=== PATIENT | female | born 1990 | race Caucasian/White ===

== ENCOUNTER 2018-09-24 11:35 | Emergency (ER) | payer SELFPAY ==
--- NOTE | 2018-09-24 12:26 | ER ---
Nurse's Notes [facility] Name: Marni Vang Age: 27 yrs Sex: Female : 1990 Arrival Date: 09/24/2018 Time: 11:41 Bed 17 Private MD: Diagnosis: Facial Cellulitis;Dental caries Presentation: 09/24 12:18 Presenting complaint: Patient states: left cheek/gum swelling x 4 days. Transition of jl7 care: patient was not received from another setting of care. Onset of symptoms was September 20, 2018. Risk Assessment: Do you want to hurt yourself or someone else? Patient reports no desire to harm self or others. Initial Sepsis Screen: Does the patient meet any 2 criteria? No. Patient's initial sepsis screen is negative. Does the patient have a suspected source of infection? No. Patient's initial sepsis screen is negative. Care prior to arrival: None. 12:18 Method Of Arrival: Ambulatory jl7 12:18 Acuity: VERONICA 4 jl7 Triage Assessment: 12:20 General: Appears in no apparent distress. uncomfortable, Behavior is calm, cooperative, jl7 appropriate for age. Pain: Complains of pain in left cheek Pain currently is 10 out of 10 on a pain scale. EENT: Throat is clear. Neuro: Level of Consciousness is awake, alert, obeys commands. Cardiovascular: Patient's skin is warm and dry. Respiratory: Airway is patent Respiratory effort is even, unlabored, Respiratory pattern is regular, symmetrical. Derm: Skin is pink, warm \T\ dry. 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 - Social history:: Smoking status: Patient uses tobacco products, smokes one-half pack cigarettes per day. - Ebola Screening: : No symptoms or risks identified at this time. - Family history:: not pertinent. - Hospitalizations: : No recent hospitalization is reported. Screenin:22 Abuse screen: Denies threats or abuse. Denies injuries from another. Nutritional jl7 screening: No deficits noted. Tuberculosis screening: No symptoms or risk factors identified. Fall Risk None identified. Assessment: 12:20 General: Appears in no apparent distress. uncomfortable, Behavior is calm, cooperative, hj appropriate for age. Pain: Complains of pain in face and left cheek. Neuro: Level of Consciousness is awake, alert, obeys commands, Oriented to person, place, time, situation, Appropriate for age. Cardiovascular: Capillary refill < 3 seconds Patient's skin is warm and dry. Respiratory: Airway is patent Respiratory effort is even, unlabored, Respiratory pattern is regular, symmetrical. GI: No signs and/or symptoms were reported involving the gastrointestinal system. : No signs and/or symptoms were reported regarding the genitourinary system. EENT: Derm: No signs and/or symptoms reported regarding the dermatologic system. Musculoskeletal: No signs and/or symptoms reported regarding the musculoskeletal system. Vital Signs: 12:20 BP 129 / 84; Pulse 107; Resp 16 S; Pulse Ox 100% on R/A; Weight 72.57 kg (R); Height 5 jl7 ft. 2 in. (157.48 cm) (R); Pain 10/10; 12:25 Temp 99.1(O); aa5 12:20 Body Mass Index 29.26 (72.57 kg, 157.48 cm) jl7 ED Course: 11:41 Patient arrived in ED. mr 12:12 Shmuel Apple MD is Attending Physician. rn 12:17 Art García RN is Primary Nurse. hj 12:19 Triage completed. jl7 12:20 Arm band placed on right wrist. jl7 12:22 Patient has correct armband on for positive identification. Bed in low position. Call [facility] light in reach. Side rails up X 1. 12:43 No provider procedures requiring assistance completed. Patient did not have IV access hj during this emergency room visit. Administered Medications: No medications were administered Outcome: 12:26 Discharge ordered by . rn 12:44 Discharged to home ambulatory, with family. hj 12:44 Condition: stable 12:44 Discharge instructions given to patient, family, Instructed on discharge instructions, follow up and referral plans. medication usage, Demonstrated understanding of instructions, follow-up care, medications, Prescriptions given X 2. 12:44 Patient left the ED. hj Signatures: Amy Kwok mr Shmuel Apple MD MD rn Israel, Estefani, RN RN aa5 Art García, RN RN Valorie Webb RN RN jl7
--- NOTE | 2018-09-24 12:26 | EDPHYS ---
Physician Documentation [facility] Name: Marni Vang Age: 27 yrs Sex: Female : 1990 Arrival Date: 09/24/2018 Time: 11:41 Bed 17 Private MD: ED Physician Shmuel Apple HPI: 09/24 12:20 This 27 yrs old Female presents to ER via Ambulatory with complaints of rn Facial Swelling. 12:20 The patient presents with pain, swelling. Onset: The symptoms/episode began/occurred 3 rn day(s) ago. Duration: The symptoms are intermittent. Severity of symptoms: At their worst the symptoms were mild, in the emergency department the symptoms are unchanged. The patient has experienced similar episodes in the past. Reports left facial swelling and pain, reports has happened before with bad teeth. NO fever, no trouble swallowing.. 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 - Social history:: Smoking status: Patient uses tobacco products, smokes one-half pack cigarettes per day. - Ebola Screening: : No symptoms or risks identified at this time. - Family history:: not pertinent. - Hospitalizations: : No recent hospitalization is reported. ROS: 12:20 Constitutional: Negative for fever, chills, and weight loss, Eyes: Negative for injury, rn pain, redness, and discharge, ENT: + poor dentition and facial swelling Neck: Negative for injury, pain, and swelling, Skin: Negative for injury, rash, and discoloration, Neuro: Negative for headache, weakness, numbness, tingling, and seizure. Exam: 12:20 Constitutional: This is a well developed, well nourished patient who is awake, alert, rn and in no acute distress. Head/Face: Atraumatic. + left facial swelling at buccal region without fluctuance Eyes: Pupils equal round and reactive to light, extra-ocular motions intact. Lids and lashes normal. Conjunctiva and sclera are non-icteric and not injected. Cornea within normal limits. ENT: Poor dentition. Mucous membranes moist. Neuro: Awake and alert, GCS 15, oriented to person, place, time, and situation. Cranial nerves II-XII grossly intact. Motor strength 5/5 in all extremities. Sensory grossly intact. Cerebellar exam normal. Normal gait. Vital Signs: 12:20 BP 129 / 84; Pulse 107; Resp 16 S; Pulse Ox 100% on R/A; Weight 72.57 kg (R); Height 5 jl7 ft. 2 in. (157.48 cm) (R); Pain 10/10; 12:25 Temp 99.1(O); aa5 12:20 Body Mass Index 29.26 (72.57 kg, 157.48 cm) jl7 MDM: 12:12 Patient medically screened. rn 12:20 Differential diagnosis: dental caries, gingivitis, facial cellulitis. Data reviewed: rn vital signs, nurses notes, and as a result, I will discharge patient. Counseling: I had a detailed discussion with the patient and/or guardian regarding: the historical points, exam findings, and any diagnostic results supporting the discharge/admit diagnosis, the need for outpatient follow up, to return to the emergency department if symptoms worsen or persist or if there are any questions or concerns that arise at home. Special discussion: I discussed with the patient/guardian in detail that at this point there is no indication for admission to the hospital. It is understood, however, that if the symptoms persist or worsen the patient needs to return immediately for re-evaluation. Based on the history and exam findings, there is no indication for further emergent testing or inpatient evaluation. I discussed with the patient/guardian the need to see a dentist for further evaluation of the symptoms. ED course: Pt without abscess, + facial swelling and cellulitis, most likely from odontogenic source, will treat with abx and have f/u with dentist. Had dental appt, was in clinic, but didn't want to pay the $50 so came here. . Administered Medications: No medications were administered Disposition: 09/24/18 12:26 Discharged to Home. Impression: Facial Cellulitis, Dental caries. - Condition is Stable. - Discharge Instructions: Cellulitis, Adult, Dental Pain. - Prescriptions for Clindamycin HCl 300 mg Oral Capsule - take 1 capsule by ORAL route every 6 hours for 10 days; 40 capsule. Bactrim DS 800- 160 mg Oral Tablet - take 1 tablet by ORAL route every 12 hours for 10 days; 20 tablet. - Medication Reconciliation Form, Thank You Letter, Antibiotic Education, Prescription Opioid Use form. - Follow up: Private Physician; When: As needed; Reason: Recheck today's complaints, Re-evaluation by your physician. - Problem is new. - Symptoms are unchanged. Signatures: Shmuel Apple MD MD rn Joaquin, Henry, RN RN hj Leal, Jahala, RN RN jl7 Corrections: (The following items were deleted from the chart) 12:44 12:26 09/24/2018 12:26 Discharged to Home. Impression: Facial Cellulitis; Dental hj caries. Condition is Stable. Forms are Medication Reconciliation Form, Thank You Letter, Antibiotic Education, Prescription Opioid Use. Follow up: Private Physician; When: As needed; Reason: Recheck today's complaints, Re-evaluation by your physician. Problem is new. Symptoms are unchanged. rn
[2018-09-24 13:07] VITALS: BP 129/84; O2SAT 100
[2018-09-24 13:08] VITALS: TEMP 99.1
== END 2018-09-24 12:44 | disposition home or self-care (01) ==
LOC: ER 11:35
DX: L03.211 Cellulitis of face (principal); F17.210 Nicotine dependence, cigarettes, uncomplicated; Z88.5 Allergy status to narcotic agent
CPT/HCPCS: 99282

== ENCOUNTER 2021-11-22 14:02 | Emergency (ER) | payer SELFPAY ==
--- OUTSIDE RECORDS SUMMARY | 2021-11-22 14:05 | XMS REPORT | Continuity of Care Document ---
:1990 Author Organization [facility] t Address [address] [place] [address] Care Team Providers Name Role Phone Unavailable Unavailable Unavailable Problems This patient has no known problems. Allergies, Adverse Reactions, Alerts Allergy Allergy Status Severity Reaction(s) Onset Inactive Treating Comm ents Source Name Type Date Date Clinician PROPOXYP DRUG Active Rash [facility] HENE 09-28 [facility] 00:00: [address] [facility] Medications This patient has no known medications. Procedures This patient has no known procedures. Encounters Start End Encounter Admission Attending Care Care Encounter Source Date/Time Date/Time Type Type Clinicians Facility Department ID 2021-03-19 2021-03-19 Emergency X [facility] ERT [id number] [facility] 21:13:00 21:13:00 [facility] Results This patient has no known results.
[2021-11-22] MEDS ORDERED: dexAMETHasone 10 MG/ML VIAL ONE (14:56)
[2021-11-22] MEDS ORDERED: KETOROLAC 30 MG/ML INJ ONE (14:56)
--- NOTE | 2021-11-22 15:08 | ER ---
Nurse's Notes [facility] Name: Marni Vang Age: 30 yrs Sex: Female : 1990 Arrival Date: 11/22/2021 Time: 14:07 Bed 10 Private MD: Diagnosis: Otalgia, unspecified ear Presentation: 11/22 14:09 Chief complaint: Patient states: WILLY ear pain X 1 day. WILLY lower back of mouth pain ld1 since this morning. Coronavirus screen: At this time, the client does not indicate any symptoms associated with coronavirus-19. Ebola Screen: No symptoms or risks identified at this time. Initial Sepsis Screen: Does the patient meet any 2 criteria? No. Patient's initial sepsis screen is negative. Does the patient have a suspected source of infection? No. Patient's initial sepsis screen is negative. Risk Assessment: Do you want to hurt yourself or someone else? Patient reports no desire to harm self or others. Onset of symptoms was November 22, 2021. 14:09 Method Of Arrival: Ambulatory ld1 14:09 Acuity: VERONICA 4 ld1 Triage Assessment: 14:11 General: Appears in no apparent distress. uncomfortable, Behavior is cooperative, ld1 anxious. Pain: Complains of pain in right ear, left ear and mouth Pain does not radiate. Pain currently is 6 out of 10 on a pain scale. EENT: Reports pain in mouth, left ear and right ear. Neuro: Level of Consciousness is awake, alert, obeys commands, Oriented to person, place, time, situation, Appropriate for age. Respiratory: Airway is patent Respiratory effort is even, unlabored. 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 - Social history:: Smoking status: Patient reports the use of cigarette tobacco products, smokes one-half pack cigarettes per day, Patient/guardian denies using alcohol, street drugs. Screenin:17 Abuse screen: Denies threats or abuse. Nutritional screening: No deficits noted. ss7 Tuberculosis screening: No symptoms or risk factors identified. Fall Risk None identified. Assessment: 14:17 General: Appears in no apparent distress. Behavior is cooperative, drowsy, restless. ss7 Pain: Complains of pain in mouth and left ear and right ear. Neuro: Level of Consciousness is awake, obeys commands, lethargic, Oriented to person, place, time, situation, Senior Technical Analyst are equal bilaterally Moves all extremities. Gait is steady, Speech is slurred, Cardiovascular: Heart tones S1 S2. Respiratory: Breath sounds are clear bilaterally. GI: No deficits noted. : No deficits noted. EENT: Reports pain in mouth and left ear and right ear. Derm: No deficits noted. Musculoskeletal: No deficits noted. Vital Signs: 14:09 BP 109 / 72; Pulse 91; Resp 20; Temp 98.3(TE); Pulse Ox 99% on R/A; Weight 72.57 kg; ld1 Height 5 ft. 2 in. (157.48 cm); Pain 6/10; 15:01 BP 125 / 72; Pulse 81; Resp 18; Pulse Ox 99% on R/A; ss7 14:09 Body Mass Index 29.26 (72.57 kg, 157.48 cm) ld1 ED Course: 14:07 Patient arrived in ED. kz 14:11 Triage completed. ld1 14:11 Arm band placed on right wrist. ld1 14:14 [facility] 14:14 Sree Burks MD is Attending Physician. [facility] 14:16 Alyssia Wynn, RN is Primary Nurse. ss7 14:17 Patient has correct armband on for positive identification. ss7 14:17 No provider procedures requiring assistance completed. ss7 15:07 Yeimy Tan MD is Referral Physician. [facility] 15:10 Patient did not have IV access during this emergency room visit. ss7 Administered Medications: 15:00 Drug: Ketorolac 30 mg Route: IM; Site: right vastus lateralis; ss7 15:11 Follow up: Response: No adverse reaction ss7 15:00 Drug: Decadron (dexamethasone) 10 mg Route: IM; Site: left vastus lateralis; ss7 15:10 Follow up: Response: No adverse reaction 7 Outcome: 15:08 Discharge ordered by . alice 15:10 Discharged to home ambulatory. 7 15:10 Condition: good 15:10 Discharge instructions given to patient, Instructed on discharge instructions, follow up and referral plans. Demonstrated understanding of instructions, follow-up care. 15:14 Patient left the ED. 7 Signatures: Bo Thornton PA PA jmm Dibbern, Lauren, RN RN ld1 Alyssia Wynn RN RN ss7 Debra Rhodes
--- NOTE | 2021-11-22 15:08 | EDPHYS ---
Physician Documentation [facility] Name: Marni Vang Age: 30 yrs Sex: Female : 1990 Arrival Date: 11/22/2021 Time: 14:07 Bed 10 Private MD: Sree Lopez HPI: 11/22 14:17 This 30 yrs old Female presents to ER via Ambulatory with complaints of Ear Pain, Mouth jmm pain. 14:17 The patient presents with pain. The complaints affect the right ear and left ear. jmm Onset: The symptoms/episode began/occurred gradually, last night. Modifying factors: The symptoms are alleviated by nothing, the symptoms are aggravated by Swallowing, opening jaw. Associated signs and symptoms: Pertinent negatives: fever. The patient has experienced similar episodes in the past. 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 - Social history:: Smoking status: Patient reports the use of cigarette tobacco products, smokes one-half pack cigarettes per day, Patient/guardian denies using alcohol, street drugs. ROS: 14:17 Constitutional: Negative for fever, chills, and weight loss, Eyes: Negative for injury, jmm pain, redness, and discharge. 14:17 ENT: Positive for ear pain. 14:17 All other systems are negative. Exam: 14:17 Constitutional: This is a well developed, well nourished patient who is awake, alert, jmm and in no acute distress. Head/Face: atraumatic. Eyes: EOMI, no conjunctival erythema appreciated 14:17 Neck: Trachea midline, Supple Chest/axilla: Normal chest wall appearance and motion. Cardiovascular: Regular rate and rhythm. No edema appreciated Respiratory: Normal respirations, no respiratory distress appreciated Abdomen/GI: Non distended, soft Back: Normal ROM Skin: General appearance color normal MS/ Extremity: Moves all extremities, no obvious deformities appreciated, no edema noted to the lower extremities Neuro: Awake and alert Psych: Behavior is normal, Mood is normal, Patient is cooperative and pleasant 14:17 ENT: TM's: bulging, on the right, erythema, that is mild, bilaterally. Vital Signs: 14:09 BP 109 / 72; Pulse 91; Resp 20; Temp 98.3(TE); Pulse Ox 99% on R/A; Weight 72.57 kg; ld1 Height 5 ft. 2 in. (157.48 cm); Pain 6/10; 15:01 BP 125 / 72; Pulse 81; Resp 18; Pulse Ox 99% on R/A; ss7 14:09 Body Mass Index 29.26 (72.57 kg, 157.48 cm) ld1 MDM: 14:17 Patient medically screened. mariel 15:02 Data reviewed: vital signs, nurses notes. Counseling: I had a detailed discussion with alice the patient and/or guardian regarding: the historical points, exam findings, and any diagnostic results supporting the discharge/admit diagnosis, the need for outpatient follow up, to return to the emergency department if symptoms worsen or persist or if there are any questions or concerns that arise at home. 15:02 ED course: Patient is alert nontoxic in appearance in the ED. No mastoid tenderness jmm appreciated bilaterally. Patient vies follow-up with ENT and otherwise given strict return precautions. Patient understood agrees plan of care. Administered Medications: 15:00 Drug: Ketorolac 30 mg Route: IM; Site: right vastus lateralis; ss7 15:11 Follow up: Response: No adverse reaction 7 15:00 Drug: Decadron (dexamethasone) 10 mg Route: IM; Site: left vastus lateralis; ss7 15:10 Follow up: Response: No adverse reaction ss7 Disposition Summary: 11/22/21 15:08 Discharge Ordered Location: Home alice Condition: Stable alice Diagnosis - Otalgia, unspecified ear alice Followup: alice - With: Yeimy Tan MD - When: 2 - 3 days - Reason: Recheck today's complaints, Continuance of care, Re-evaluation by your physician Discharge Instructions: - Discharge Summary Sheet alice - Earache, Adult alice Forms: - Medication Reconciliation Form alice - Thank You Letter alice - Antibiotic Education [facility] - Prescription Opioid Use [facility] Prescriptions: - Diclofenac Sodium 75 mg Oral Tablet Sustained Release - take 1 tablet by ORAL route 2 times per day; 30 tablet; Refills: 0, Product [facility] Selection Permitted - Amoxicillin 875 mg Oral Tablet - take 1 tablet by ORAL route every 12 hours for 10 days; 20 tablet; Refills: 0, [facility] Product Selection Permitted Addendum: 11/26/2021 18:19 Co-signature as Attending Physician, Sree Burks MD I agree with the assessment and c patino plan of care. Signatures: Sree Burks MD MD cha Mickail, Joel, PA PA jmm Dibbern, Lauren, RN RN ld1 Alyssia Wynn RN RN ss7
[2021-11-22 16:02] VITALS: TEMP 98.3; O2SAT 99
[2021-11-22 16:03] VITALS: BP 125/72
== END 2021-11-22 15:14 | disposition home or self-care (01) ==
LOC: ER 14:02
DX: H92.03 Otalgia, bilateral (principal); F32.A Depression, unspecified; G47.00 Insomnia, unspecified; F17.210 Nicotine dependence, cigarettes, uncomplicated; Z88.5 Allergy status to narcotic agent
CPT/HCPCS: 96372; 99283; J1100